=== PATIENT | male | born 1970 | race Caucasian/White ===

== ENCOUNTER 2018-03-31 22:10 | Inpatient (IN) | payer BC ==
[2018-03-31 22:30] LABS: Bilirubin Large (Negative); Blood, Urine Negative (Negative); Clarity CLEAR (Clear); Glucose, Urine (Dipstick) Negative (Negative); Leukocyte Small (Negative); Nitrite Positive (Negative); Protein, Urine (Dipstick) Negative (Neg-Trace); Specific Gravity, Urine 1.028 (1.002-1.036); pH, Urine 5.5 (5.0-9.0)
[2018-03-31 22:31] LABS: Bacteria/HPF None Seen HPF (None Seen); Hyaline Casts/LPF 0-3 HYALINE CAST LPF (0-3 Hyaline); Pathc Cast-AUWi Flag 0.29 (0-2.49); Squamous Epithelial None Seen HPF (0-3); WBC/HPF None Seen HPF (0-3)
[2018-03-31 23:08] LABS: #Eosinphils 0.1 thou/uL (0.0-0.7); #Lymphocytes 1.1 thou/uL (1.20-3.40); #Monocytes 0.5 thou/uL (0.11-0.59); #Neutrophils 5.6 thou/uL (1.40-6.50); %Basophils 0.4 % (0.0-1.0); %Eosinophils 0.7 % (0.0-10.0); %Lymphocytes 15.4 % (21.0-51.0); %Monocytes 6.4 % (0.0-10.0); %Neutrophils 77.1 % (42.0-75.0); Hemoglobin 15.4 g/dL (14.0-18.0); Mean Corpuscular HGB CONC 33.8 g/dL (32.0-36.0); Mean Corpuscular Hemoglobin 29.2 pg (27.0-31.0); Mean Corpuscular Volume 86.4 fL (78.0-98.0); Mean Platelet Volume 7.6 fL (7.4-10.4); Platelet Count 222 thou/uL (130-400); RBC Distribution Width 13.4 % (11.5-14.5); Red Blood Cell (RBC) Count 5.26 mill/uL (4.70-6.10); White Blood Cell (WBC) Count 7.3 thou/uL (4.8-10.8)
[2018-03-31 23:14] LABS: INR-International Normal Ratio 1.1; Prothrombin Time 14.2 SEC (12.0-14.7)
[2018-03-31 23:15] LABS: PTT 30.3 SEC (22.9-36.1)
[2018-03-31 23:29] LABS: ALT (SGPT) 458 U/L (8-55); AST (SGOT) 282 U/L (5-34); Albumin 4.3 g/dL (3.5-5.0); Alkaline Phosphatase 76 U/L (40-150); Anion Gap 13 mmol/L (10-20); BUN (Urea Nitrogen) 17 mg/dL (8.9-20.6); Bilirubin, Total 8.8 mg/dL (0.2-1.2); Calc. Creatinine Clearance 0 mL/min (70-130); Calcium 9.3 mg/dL (7.8-10.44); Carbon Dioxide 22 mmol/L (22-29); Chloride 106 mmol/L (98-107); Estimated GFR-MDRD 71; Globulin 3.1 g/dL (2.4-3.5); Glucose 98 mg/dL (70-105); Lipase 31 U/L (8-78); Potassium 3.9 mmol/L (3.5-5.1); Protein, Total 7.4 g/dL (6.0-8.3); Sodium 137 mmol/L (136-145)
--- NOTE | 2018-03-31 23:31 | ULT ---
RIGHT UPPER QUADRANT ULTRASOUND: History: Cholecystitis, Right upper quadrant pain. Jaundice. FINDINGS: The gallbladder is markedly distended measuring 13.7 cm in length. There is echogenic sludge in the g allbladder and multiple gallstones. The gallbladder wall is thickened measuring 4 mm. The common bile duct and the intrahepatic bile ducts are dilated. The common bile duct measures 1 cm in diameter. A markedly positive sonographic Dempsey's sign is reported by the hand candy dipper. There is a 5.8 x 3.1 cm fluid collection adjacent to the gallbladder which may either represent a flu id containing loop of bowel. However, the possibility of an abscess or contained perforation cannot b e completely excluded. No hepatic mass is seen. The right kidney is normal. The pancreas is not visualized. No free fluid is seen in Triana's pouch. IMPRESSION: Findings are consistent with acute calculus cholecystitis. Please see above. Discussed over the telephone with ER physician, Dr. Rai Bonilla, at 11:22 p.m. POS: [facility]
[2018-03-31] MEDS ORDERED: MEROPENEM 1 GM/50 ML 1 GM in Premix Bag 1 BAG IVPB SCH (23:45)
[2018-04-01] MEDS ORDERED: Lactated Ringer's 1,000 ML IV SCH (00:45)
[2018-04-01] MEDS: Lactated Ringer's 1,000 ML IV SCH ×3 (02:07→19:45)
[2018-04-01 03:24] VITALS: BMI 24.9
[2018-04-01] MEDS: Ketorolac Tromethamine 30 MG/ML VIAL IVP SCH ×3 (06:41→12:20)
[2018-04-01] MEDS: Acetaminophen 1,000 MG in Premix Bag 1 BAG IVPB SCH ×2 (06:44→12:08)
[2018-04-01] MEDS ORDERED: MEROPENEM 1 GM/50 ML 1 GM in Premix Bag 1 BAG IVPB SCH (08:00)
--- NOTE | 2018-04-01 08:42 | HP ---
HISTORY OF PRESENT ILLNESS: Brannon Jurado is a 47-year-old male going through a divorce, works [employer] and [employer], presents with 1 year history of intermittent epigastric right upper quadrant pain, biliary symptoms. He had especially severe episode with continuous pain the last few days, pr esents to the emergency room, noted to have a white count of 7, hemoglobin 15, bilirubin 8, AST and A LT 282 and 858, lipase normal. Ultrasound of his gallbladder revealed multiple gallstones and dilate d bile ducts. ALLERGIES: PENICILLIN. TOBACCO: None. ALCOHOL: Socially. MEDICATIONS: Lisinopril 40 mg a day, BuSpar 10 mg b.i.d., omeprazole 40 mg a day. [facility] Buspirone 10 mg b.i.d., Fenofibrate 54 mg daily, omeprazole 40 mg a day, lisinopril 10 mg a day. PAST SURGICAL HISTORY: Appendectomy. PAST MEDICAL HISTORY: Hypertension, elevated cholesterol. FAMILY HISTORY: Noncontributory. REVIEW OF SYSTEMS: Ten point noncontributory. PHYSICAL EXAMINATION: VITAL SIGNS: Height 6 foot 1, 189 pounds, 24 BMI, 98 degrees, 70, 127/73. HEENT: Unremarkable. LUNGS: Clear to auscultation. CARDIAC: Regular rate and rhythm without murmur or gallop. ABDOMEN: Soft, tenderness in epigastrium, right upper quadrant with guarding. EXTREMITIES: Unremarkable. No ankle edema, no lymphadenopathy. NEURO: Cranial nerves intact. Head, eyes, ears, nose and throat normal. Neurologically intact. EXTREMITIES: Unremarkable. LYMPH: Axilla, groins, neck without lymphadenopathy. ASSESSMENT AND PLAN: 1. Cholecystitis, cholelithiasis, choledocholithiasis. 2. Hypertension. 3. Elevated triglycerides. PLAN: Consultation with Dr. Howard, Gastroenterology for an ERCP prior to laparoscopic cholecystectom y, hopefully under the same anesthesia. Risk of infection, bleeding, visceral and biliary injury rel ated to the laparoscopic cholecystectomy and risk of pancreatitis discussed. He consents.
[2018-04-01] MEDS ORDERED: Ondansetron ODT 4 MG TAB PO PRN (08:43)
[2018-04-01] MEDS ORDERED: Ondansetron ODT 8 MG TAB SL PRN (08:43)
[2018-04-01] MEDS ORDERED: Acetaminophen 1,000 MG in Premix Bag 1 BAG IVPB PRN (08:43)
[2018-04-01] MEDS ORDERED: Ondansetron HCl/PF 4 MG/2 ML Vial IVP PRN ×3 (08:43→21:36)
[2018-04-01] MEDS ORDERED: Ondansetron ODT 8 MG TAB PO PRN (08:43)
[2018-04-01] MEDS ORDERED: Lisinopril 20 MG TAB PO SCH (09:45)
[2018-04-01] MEDS ORDERED: Acetaminophen 1,000 MG in Premix Bag 1 BAG IVPB SCH (09:45)
--- NOTE | 2018-04-01 12:15 | CON ---
DATE OF CONSULTATION: 04/01/2018 REQUESTING PHYSICIAN: Dr. Tan. REASON FOR CONSULTATION: Choledocholithiasis. HISTORY OF PRESENT ILLNESS: Brannon Jurado is a very pleasant 47-year-old man. I met him a couple of years ago after he had an episode of mild uncomplicated diverticulitis. I performed colonoscopy at that time which showed only a small rectal polyp, which I removed, as well as diverticulosis. The patient was admitted to the hospital overnight with cholecystitis and choledocholithiasis. He reports over the past year intermittently he has had some epigastric and right upper quadrant pain, usually postprandial and often transient, but now over the past few days, he had a more severe protracted episode. Upon presentation to the emergency department, he was found to have elevated LFTs with a normal lipase. Ultrasound of the abdomen demonstrated distended gallbladder with multiple gallstones and a common bile duct dilated to 1 cm. His pain is currently fairly well controlled on analgesics. He is hemodynamically stable. He has no other complaints. No fever. PAST MEDICAL HISTORY: Hypertension, hyperlipidemia, diverticulosis, appendectomy. ALLERGIES: PENICILLIN. MEDICATIONS: Lisinopril, BuSpar, omeprazole 40 mg daily, buspirone, fenofibrate. FAMILY HISTORY: Noncontributory. SOCIAL HISTORY: No tobacco use. Alcohol use is social. REVIEW OF SYSTEMS: Full review of systems including constitutional, head, eyes , ears, nose, throat, GI, , cardiovascular, respiratory, musculoskeletal, and neurologic systems is negative except as noted in the HPI. PHYSICAL EXAMINATION: VITAL SIGNS: Temperature 98.3, pulse 61, blood pressure 133/67, 96% oxygen saturation on room air. GENERAL: No acute distress. HEART: Regular rate and rhythm. LUNGS: Clear to auscultation bilaterally. ABDOMEN: Bowel sounds present, soft, tender to palpation in the upper abdomen, but no guarding, rebound tenderness. EXTREMITIES: No peripheral edema. VESSELS: Radial pulses 2+ bilaterally. NEUROLOGICAL: Cranial nerves II-XII intact bilaterally. No focal deficits. SKIN: No jaundice, no rashes were palpable. EYES: No scleral icterus. Extraocular movements intact. ENT: Mucous membranes moist, no oral lesions. LYMPH: No submandibular, supraclavicular lymphadenopathy. THYROID: Nontender to palpation. LABORATORY STUDIES: WBC 7.3, hemoglobin 15.4, platelets 222. INR 1.1. Sodium 137, potassium 3.9, BUN 17, creatinine 1.11. Total bilirubin elevated at 8.8, direct bilirubin 6.8, alkaline phosphatase 76, AST 282, ALT 458. Lipase normal at 31. IMAGING STUDIES: Abdominal ultrasound from last night demonstrated markedly distended gallbladder to 13.7 cm in length with echogenic sludge and multiple gallstones. There is gallbladder wall thickening to 4 mm. Intrahepatic bile ducts are dilated and the common bile duct is dilated to 1 cm in diameter with a positive sonographic Dempsey sign. There is an indeterminate 5.8 x 3.1 cm fluid collection adjacent to the gallbladder which may represent fluid containing loop of bowel. ASSESSMENT AND PLAN: 1. Choledocholithiasis. 2. Cholecystitis. I had a long discussion with the patient and his presentation is consistent with not only cholecystitis, but also choledocholithiasis. The patient will need laparoscopic cholecystectomy and ERCP. We are working to arrange this with Dr. Tan. The plan will be to take him for ERCP first followed by laparoscopic cholecystectomy under the same anesthesia this afternoon. I discussed the procedure in detail with the patient including potential risks of the procedure such as post-ERCP pancreatitis. The patient desires to proceed. TERENCE
[2018-04-01] MEDS ORDERED: PHENYLEPHRINE-NS 100 MCG/ML 10 ML SYRINGE ONE (12:25)
[2018-04-01] MEDS ORDERED: Lidocaine 1% PF 5 ML VIAL ONE (12:25)
[2018-04-01] MEDS ORDERED: Ketorolac Tromethamine 30 MG/ML VIAL ONE (12:25)
[2018-04-01] MEDS ORDERED: Ondansetron HCl/PF 4 MG/2 ML Vial ONE ×2 (12:25→20:03)
[2018-04-01] MEDS ORDERED: PROPOFOL 200 MG/20 ML VIAL ONE (12:25)
[2018-04-01] MEDS ORDERED: Bupivacaine HCl 0.5%/Epinephrine 1:200,000/PF 30 ml Vial ONE (15:09)
[2018-04-01] MEDS ORDERED: Indomethacin 50 MG SUPP ONE (16:16)
[2018-04-01] MEDS ORDERED: Iothalamate Meglumine 60% 50 ML VIAL FS ONE ×2 (16:16→18:53)
[2018-04-01] MEDS ORDERED: Fentanyl 250 MCG/5 ML VIAL ONE (16:20)
[2018-04-01] MEDS ORDERED: Rocuronium Bromide 50 MG/5 ML VIAL ONE (19:46)
--- NOTE | 2018-04-01 20:34 | RAD ---
ERCP: 04/01/2018 HISTORY: Cholelithiasis. FINDINGS: A single image is provided, demonstrating an endoscope over the right upper quadrant. No contrast me cong is present on this examination and, thus, the biliary tree is not assessed. IMPRESSION: Limited endoscope retrograde cholangiopancreatography, as above. POS: [facility]
[2018-04-01] MEDS ORDERED: Acetaminophen 500 MG TAB PO PRN (21:19)
[2018-04-01] MEDS ORDERED: Ibuprofen 600 MG TAB PO PRN (21:19)
[2018-04-01] MEDS ORDERED: traMADol HCl 50 MG TAB PO PRN (21:19)
[2018-04-01] MEDS ORDERED: Meperidine HCl/PF 25 MG/ML VIAL SLOW IVP PRN (21:36)
[2018-04-01] MEDS ORDERED: Promethazine HCl 25 MG/ML VIAL SLOW IVP PRN (21:36)
[2018-04-01] MEDS ORDERED: Promethazine HCl 25 MG/ML VIAL IM PRN (21:36)
--- NOTE | 2018-04-01 21:54 | RAD ---
INTRAOPERATIVE CHOLANGIOGRAM 1 VIEW: 04/01/2018 HISTORY: A 47-year-old male with acute acalculous cholecystitis. FINDINGS: Contrast injection into the cystic duct demonstrates diffuse moderate dilation of the intrahepatic bi liary radicles, left and right biliary ducts, the common hepatic duct, and the common bile duct, whic h tapers inferiorly. A small amount of contrast is visualized in the duodenum, mostly outside the fi eld of view. There is also extravasated contrast material outlining an oval mass, projecting directl y inferior to the cystic duct, which may represent the gallbladder. No filling defect is identified within the biliary tree, except for a gap in the contrast material in the peripheral portion of the l eft hepatic duct, just proximal to its proximal branching. IMPRESSION: 1. Moderate dilation of the biliary tree. 2. A significant filling defect in the left hepatic duct. POS: [facility]
[2018-04-01] MEDS: Enoxaparin Sodium 40 MG/0.4 ML SYRINGE SC SCH (22:34)
--- NOTE | 2018-04-01 23:20 | OP ---
DATE OF PROCEDURE: 04/01/2018 GI ENDOSCOPY NOTE SURGEON: Filiberto Mckenna MD [employer] SURGEON: None. PROCEDURE: Endoscopic retrograde cholangiopancreatography, incomplete due to failure to cannulate th e common bile duct. INDICATION: Choledocholithiasis. MEDICATIONS: 1. See anesthesia record. 2. Indomethacin 100 mg per rectum, as procedural prophylaxis against post-ERCP pancreatitis. FINDINGS: After discussion of the risks, benefits and alternatives of the procedure, informed consen t was obtained and witnessed. Endoscopic cardiopulmonary examination was satisfactory. Timeout was performed before sedation was achieved. Sedation was achieved with general anesthesia assistance in the endoscopy unit. The patient was placed in the semiprone position on the fluoroscopy table. A Pe ntax adult side-viewing duodenoscope was advanced through the mouth beyond the esophagus and stomach and into the second portion of the duodenum. The ampulla was brought into view with the endoscope in the short position. The ampulla is small, but otherwise normal appearing. There was some spontaneo us passage of sludge from the ampulla visualized. Using a triple lumen dome tip sphincterotome and 0 .035 guidewire, we attempted to selectively cannulate the common bile duct. There appears to be some degree of ampullary stenosis as passage of the wire was difficult. We switched out the wire for the smaller wire 0.025 guidewire. Multiple attempts were made with this smaller caliber wire as well as the larger wire. Unfortunately, I was unable to cannulate the common bile duct or even cannulate th e pancreatic duct, despite attempts for almost 2 hours. I discussed the case with Dr. Tan, who wa s present during the beginning and portions of the procedure. It was decided to stop the procedure a t this point and proceed with cholecystectomy with intraoperative cholangiogram. Therefore, the work ing apparatus was completely withdrawn and the endoscope was completely withdrawn sectioning out exce ss air and fluid. The patient tolerated the procedure well. There were no immediate post-procedure complications. The patient was transported to the operating room for laparoscopic cholecystectomy. ASSESSMENT: 1. Choledocholithiasis. 2. Small ampulla. 3. Incomplete endoscopic retrograde cholangiopancreatography secondary to failure to cannulate the c ommon bile duct. RECOMMENDATIONS: 1. Proceed with cholecystectomy and intraoperative cholangiogram. 2. If the intraoperative cholangiogram is positive, then we will arrange for repeat attempt at ERCP tomorrow. 3. Monitor for potential complications including pancreatitis.
[2018-04-02] MEDS: Lactated Ringer's 1,000 ML IV SCH ×3 (01:41→16:30)
--- NOTE | 2018-04-02 01:57 | OP ---
DATE OF PROCEDURE: 04/01/2018 PREOPERATIVE DIAGNOSES: Acute cholecystitis, cholelithiasis, choledocholithiasis, unsuccessful endos copic retrograde cholangiopancreatography. SURGEON: Dr. Mckenna. POSTOPERATIVE DIAGNOSES: Acute cholecystitis, chronic cholecystitis, intrahepatic gallbladder. Chol angiograms revealed dilated bile duct, delayed emptying of the common bile duct, but no filling defec ts on final fluoroscopic images. PROCEDURES: Laparoscopic video cholecystectomy, very difficult due to intrahepatic gallbladder and m ultiple small stones. Endoloops for the cystic duct stump, as it was too broad to accommodate clips even a 10-mm clip. ESTIMATED BLOOD LOSS: 150 mL, Tabitha used. PROCEDURE IN DETAIL: Patient was taken to the operating room, where under general anesthesia after u nsuccessful ERCP by Dr. Mckenna. The abdomen was clipped of hair, prepared with ChloraPrep, draped in r outine fashion. Local anesthetic 0.5% Marcaine with epinephrine infiltrated skin and subcutaneous ti ssue about each port site. Infraumbilical incision made. Pneumoperitoneum to 15 mm obtained with Ve ress needle, replacing it with a 5-port laparoscope inserted. Right subxiphoid incision made and 11- port placed. Right subcostal incision made, mid clavicular anterior axillary lines, and 5 ports plac ed. Liver appeared to be normal. Gallbladder was acutely inflamed, thickened wall, and intrahepatic gallbladder noted. The gallbladder was decompressed to enable grasping the thick wall. Fundus of t he gallbladder grasped at the cephalad and infundibulum dissected free. Cystic artery and duct disse cted free. Critical view obtained. Cystic artery double-clipped proximally. The cystic duct singly clipped on the gallbladder side. An opening made in the cystic duct, cholangiocath inserted, and ch olangiogram was obtained using fluoroscopy revealing the dilated bile duct without emptying initially , but after further pressure, it emptied without filling defects and tapered nicely without filling d efects. Emptying the duodenum was noted. Good hemostasis noted. Cholangiocath removed. Cystic kat t stump. A 5-mm clip would not occlude, 10-mm clip would not occlude, two Endoloops were placed, and gallbladder carefully dissected from the liver bed was very difficult due to intrahepatic gallbladde r. Gallbladder and contents removed, placed in Endobag and removed. Subxiphoid fascia approximated with [id number] suture of 0 Vicryl GraNee needle. Good hemostasis noted. Tabitha placed in live r bed. A #19 gold RITIKA drain placed in the liver bed and brought out through a right subcostal trocar site, secured with 3-0 nylon suture. An irrigant, pneumoperitoneum evacuated. All instruments remov ed and all skin incisions approximated with subdermal 4-0 Monocryl and DermaGlue applied.
[2018-04-02] MEDS: Ketorolac Tromethamine 30 MG/ML VIAL IVP PRN ×2 (02:03→21:16)
[2018-04-02 05:25] LABS: #Lymphocytes 0.4 thou/uL (1.20-3.40); #Monocytes 0.4 thou/uL (0.11-0.59); %Basophils 0.1 % (0.0-1.0); %Eosinophils 0.1 % (0.0-10.0); %Lymphocytes 5.6 % (21.0-51.0); %Monocytes 5.6 % (0.0-10.0); %Neutrophils 88.7 % (42.0-75.0); Hemoglobin 12.5 g/dL (14.0-18.0); Mean Corpuscular HGB CONC 32.5 g/dL (32.0-36.0); Mean Corpuscular Hemoglobin 28.5 pg (27.0-31.0); Mean Corpuscular Volume 87.7 fL (78.0-98.0); Mean Platelet Volume 8.5 fL (7.4-10.4); Platelet Count 175 thou/uL (130-400); RBC Distribution Width 13.1 % (11.5-14.5); Red Blood Cell (RBC) Count 4.41 mill/uL (4.70-6.10); White Blood Cell (WBC) Count 7.9 thou/uL (4.8-10.8)
[2018-04-02 05:49] LABS: ALT (SGPT) 327 U/L (8-55); AST (SGOT) 204 U/L (5-34); Albumin 3.3 g/dL (3.5-5.0); Alkaline Phosphatase 77 U/L (40-150); Anion Gap 13 mmol/L (10-20); BUN (Urea Nitrogen) 16 mg/dL (8.9-20.6); Bilirubin, Total 9.4 mg/dL (0.2-1.2); Calc. Creatinine Clearance 130 mL/min (70-130); Calcium 8.4 mg/dL (7.8-10.44); Carbon Dioxide 22 mmol/L (22-29); Chloride 105 mmol/L (98-107); Estimated GFR-MDRD Greater than 90; Globulin 2.1 g/dL (2.4-3.5); Glucose 138 mg/dL (70-105); Potassium 3.9 mmol/L (3.5-5.1); Protein, Total 5.4 g/dL (6.0-8.3); Sodium 136 mmol/L (136-145)
[2018-04-02 06:02] LABS: Lipase 2182 U/L (8-78)
[2018-04-02] MEDS: Ketorolac Tromethamine 30 MG/ML VIAL IVP SCH (09:30)
[2018-04-02] MEDS: Lisinopril 20 MG TAB PO SCH (09:30)
--- NOTE | 2018-04-02 12:56 | PRG ---
DATE OF SERVICE: 04/02/2018 Brannon Jurado is doing well today. He is having some upper abdominal pain spanning from his right upper quadrant to his left upper quadrant. He has not had any nausea or vomiting. PHYSICAL EXAMINATION: VITAL SIGNS: Temperature 98.5 degrees, 75, 127/69. LABORATORY: White count 7, hemoglobin 12, sodium 136, potassium 3.9, bilirubin 9.4, AST 204, ALT 327 , lipase 2182. ASSESSMENT AND PLAN: Mild pancreatitis post-laparoscopic cholecystectomy, cholangiograms and failed attempt at ERCP. Cholangiogram was initially thought were negative, but further review reveals proba ble filling defect in the left hepatic duct. I have discussed with Dr. Wilfrid Stanley. Probably would tyrone sofy reattempts at ERCP for another 24 hours. We will check his labs tomorrow. Continue intravenous antibiotics, increase mobility, allow sips and chips.
[2018-04-02 19:04] LABS: Bilirubin Large (Negative); Blood, Urine Negative (Negative); Clarity CLOUDY (Clear); Glucose, Urine (Dipstick) Negative (Negative); Leukocyte Small (Negative); Nitrite Positive (Negative); Protein, Urine (Dipstick) Negative (Neg-Trace); Specific Gravity, Urine 1.024 (1.002-1.036); Urobilinogen 0.2 mg/dL (0.2-1.0); pH, Urine 5.5 (5.0-9.0)
[2018-04-02 19:06] LABS: Bacteria/HPF None Seen HPF (None Seen); Hyaline Casts/LPF 7-10 HYALINE CAST LPF (0-3 Hyaline); Pathc Cast-AUWi Flag 2.47 (0-2.49); Squamous Epithelial 0-3 HPF (0-3); WBC/HPF 0-3 HPF (0-3)
[2018-04-02 19:18] LABS: RBC/HPF None Seen HPF (0-3); Yeast-All Forms None Seen HPF (None Seen)
[2018-04-02] MEDS: Enoxaparin Sodium 40 MG/0.4 ML SYRINGE SC SCH (21:05)
[2018-04-03] MEDS: Lactated Ringer's 1,000 ML IV SCH ×3 (01:26→14:43)
[2018-04-03] MEDS: traMADol HCl 50 MG TAB PO PRN (03:47)
[2018-04-03 05:51] LABS: #Lymphocytes 0.6 thou/uL (1.20-3.40); #Monocytes 0.3 thou/uL (0.11-0.59); #Neutrophils 5.2 thou/uL (1.40-6.50); %Eosinophils 0.3 % (0.0-10.0); %Monocytes 5.4 % (0.0-10.0); %Neutrophils 84.3 % (42.0-75.0); Hemoglobin 10.6 g/dL (14.0-18.0); Mean Corpuscular HGB CONC 33.3 g/dL (32.0-36.0); Mean Corpuscular Volume 87.2 fL (78.0-98.0); Mean Platelet Volume 7.8 fL (7.4-10.4); Platelet Count 151 thou/uL (130-400); RBC Distribution Width 13.3 % (11.5-14.5); Red Blood Cell (RBC) Count 3.64 mill/uL (4.70-6.10); White Blood Cell (WBC) Count 6.2 thou/uL (4.8-10.8)
[2018-04-03 06:05] LABS: ALT (SGPT) 223 U/L (8-55); AST (SGOT) 128 U/L (5-34); Albumin 3.1 g/dL (3.5-5.0); Alkaline Phosphatase 83 U/L (40-150); Anion Gap 10 mmol/L (10-20); BUN (Urea Nitrogen) 16 mg/dL (8.9-20.6); Bilirubin, Total 4.7 mg/dL (0.2-1.2); Calc. Creatinine Clearance 148 mL/min (70-130); Calcium 8.4 mg/dL (7.8-10.44); Carbon Dioxide 26 mmol/L (22-29); Chloride 104 mmol/L (98-107); Estimated GFR-MDRD Greater than 90; Globulin 2.3 g/dL (2.4-3.5); Glucose 86 mg/dL (70-105); Lipase 876 U/L (8-78); Potassium 3.7 mmol/L (3.5-5.1); Protein, Total 5.4 g/dL (6.0-8.3); Sodium 136 mmol/L (136-145)
--- NOTE | 2018-04-03 06:29 | PRG ---
DATE OF SERVICE: 04/02/2018 REASON FOR CONSULTATION: Choledocholithiasis. SUBJECTIVE: The patient underwent ERCP yesterday and was unsuccessful to achieve successful cannulat ion of the ampulla. He was subsequently taken for laparoscopic cholecystectomy afterwards with intra operative cholangiogram performed that was initially negative for retained stone, but upon further re view may be harboring a left hepatic stone. Today, the patient states that he has been having increa sed dysuria with pain with urination since this morning. He denies any blood in his urine, but notes that it has been orange in coloration since prior to admission. He also endorses increased right up per quadrant and midepigastric abdominal pain that he is relatively unchanged from previous, although maybe a little worse over the midepigastric region. Currently, denies any nausea, vomiting, fevers, chills, dysphagia, odynophagia, diarrhea or constipation. OBJECTIVE: VITAL SIGNS: Temperature 98.2, pulse 76, blood pressure 133/70, respiratory rate 16, satting 96% on room air. GENERAL: The patient is lying in bed, in no acute distress. Alert and oriented x4. CARDIOVASCULAR: Regular rate and rhythm. PULMONARY: Clear to auscultation bilaterally. ABDOMEN: Normoactive bowel sounds, soft, nondistended. Tenderness to palpation in the right upper q uadrant, midepigastric, and periumbilical regions. EXTREMITIES: No cyanosis, clubbing or edema. LABORATORY DATA: CBC with a white blood cell count of 7.9, hemoglobin 12.5, hematocrit 38.6, platele ts 175. Chemistry with a sodium of 136, potassium 3.9, chloride 105, carbon dioxide 22, BUN 16, crea tinine 0.84, glucose 138, AST 204, ALT 327, alkaline phosphatase 77, total bilirubin 9.4, lipase 2182 . IMAGING DATA: No current GI imaging is available for review. ASSESSMENT AND PLAN: The patient is a 47-year-old gentleman with past medical history of hypertensio n, hyperlipidemia, diverticulosis, presenting with complaints of abdominal pain and probable choledoc holithiasis. Choledocholithiasis: The patient initially presented with intermittent epigastric and right upper qu adrant abdominal pain that was usually postprandial, but had worsened the past few days prior to admi ssion. On admission, he was noted to have significantly elevated LFTs as well as a normal lipase, bu t imaging showed dilation of the common bile duct to approximately 1 cm concerning for choledocholith iasis. He subsequently underwent ERCP on 04/01/2018 with an unsuccessful attempt to cannulate the am melanie for stone extraction. He subsequently went for laparoscopic cholecystectomy on 04/01/2018 with intraoperative cholangiogram initially not showing any filling defects, but upon further review may be harboring a retained stone within the left hepatic duct. Upon review of his labs today, his AST a nd ALT are currently down trending, although his total bilirubin is up trending which may be a delaye d effect from the inflammation within the liver and not necessarily indicative of a continued obstruc tive process. However, he does have an elevated lipase since ERCP concerning for post-ERCP pancreati tis. RECOMMENDATIONS: 1. We would continue to trend LFTs daily. If his LFTs are increased in the morning, we will conside r repeat ERCP for a repeat attempt at possible cannulation of the ampulla and stone extraction. Othe rwise, if his LFTs are down trending, we would continue to monitor. 2. We would continue IV fluids as you are doing for acute post-ERCP pancreatitis. 3. Pain control per primary team. 4. We would consider urinalysis for dysuria that the patient is complaining of today, although it is most likely due to post-instrumentation with Tesfaye catheter during the ERCP yesterday. We will continue to follow. Please call with any questions.
[2018-04-03] MEDS: Lisinopril 20 MG TAB PO SCH (09:40)
[2018-04-03] MEDS: Ketorolac Tromethamine 30 MG/ML VIAL IVP SCH (09:41)
[2018-04-03] MEDS ORDERED: Fentanyl 100 MCG/2 ML VIAL ONE (10:18)
[2018-04-03] MEDS ORDERED: Midazolam HCl 2 mg/2 ml Vial ONE (10:52)
[2018-04-03] MEDS ORDERED: Iothalamate Meglumine 60% 50 ML VIAL FS ONE (11:05)
[2018-04-03] MEDS ORDERED: Indomethacin 50 MG SUPP ONE (11:05)
[2018-04-03] MEDS ORDERED: Ondansetron HCl/PF 4 MG/2 ML Vial IVP PRN (11:39)
[2018-04-03] MEDS ORDERED: Promethazine HCl 25 MG/ML VIAL SLOW IVP PRN (11:39)
[2018-04-03] MEDS ORDERED: Meperidine HCl/PF 25 MG/ML VIAL SLOW IVP PRN (11:39)
[2018-04-03] MEDS ORDERED: Promethazine HCl 25 MG/ML VIAL IM PRN (11:39)
--- NOTE | 2018-04-03 12:49 | OP ---
DATE OF PROCEDURE: 04/03/2018 PREOPERATIVE DIAGNOSIS: Obstructive jaundice. DESCRIPTION OF PROCEDURE: After informed consent was obtained, the patient placed in left lateral de cubitus position. Anesthesia was administered per the Anesthesia Department. Side-viewing endoscope was inserted into esophagus under direct visualization with ease and passed to the second portion of the duodenum with ease. No mucosal abnormalities were noted. The ampulla was normal except for see med to be slightly scarred at the distal tip of the ampulla. Tapered-tip papillotome could not be in serted even with guidewire assistance and a regular cannula was tried. This was successfully cannula gucci and a wire was passed. Exchange was made for the papillotome. A sphincterotomy was performed an d a duct was swept multiple times with a 9 mm balloon revealing multiple small white colored stones. ASSESSMENT: 1. Choledocholithiasis. 2. Status post sphincterotomy and stone extraction. RECOMMENDATIONS: Recheck LFTs.
[2018-04-03] MEDS ORDERED: ePHEDrine/0.9% NaCl/PF SYRINGE 50 mg/10 ml ONE (13:38)
[2018-04-03] MEDS ORDERED: PROPOFOL 200 MG/20 ML VIAL ONE (13:38)
[2018-04-03] MEDS ORDERED: Ondansetron HCl/PF 4 MG/2 ML Vial ONE (13:38)
[2018-04-03] MEDS ORDERED: Lidocaine 1% PF 5 ML VIAL ONE (13:38)
[2018-04-03] MEDS ORDERED: PHENYLEPHRINE-NS 100 MCG/ML 10 ML SYRINGE ONE (13:38)
[2018-04-03] MEDS ORDERED: Dexamethasone 20 MG/5 ML VIAL ONE (13:38)
[2018-04-03] MEDS ORDERED: Glycopyrrolate 0.2 MG/ML 5 ML SYRINGE ONE (13:38)
--- NOTE | 2018-04-03 18:41 | HP ---
DATE OF SERVICE: 04/03/2018 SUBJECTIVE: Mr. Jurado is doing well today. He is still having some abdominal pain, but better than y day. OBJECTIVE: VITAL SIGNS: 98 degrees, 81, 127/73, and respiratory rate 12. LUNGS: Clear to auscultation. CARDIAC: Regular rate and rhythm without murmur or gallop. ABDOMEN: Soft, no guarding. Drainage from his drain is bloody serous. LABORATORY DATA: His laboratories this morning, white count is 6.2, hemoglobin 10.6. His sodium was 136, potassium 3.7, BUN 16, creatinine 0.74. His bilirubin has fallen from 9.4-4.7. Transaminases 204 AST to 128, 327 ALT to 223, alkaline phosphatase is normal at 83, lipase has fallen from 2182 at ER stay to 876 today. ASSESSMENT AND PLAN: I have discussed with Gastroenterology, Dr. Stanley will plan ERCP attempt again t patricia. If this is unsuccessful, then we will send him to Dr. Cruz in [place]. The patient agrees with this plan. He understands risks and benefits of the ERCP and questions were answered. The pat ient's urinalysis obtained yesterday, he has positive nitrite. He did have an in and out catheteriza tion, but he is on Levaquin and no further treatment is indicated. He is on Levaquin for intra-abdom inal problems. COMMENT: The patient post ERCP can advance diet as tolerated. GI, pending procedure.
[2018-04-04] MEDS: Lactated Ringer's 1,000 ML IV SCH ×2 (00:23→07:43)
[2018-04-04 05:36] LABS: #Monocytes 0.5 thou/uL (0.11-0.59); #Neutrophils 5.9 thou/uL (1.40-6.50); %Basophils 0.2 % (0.0-1.0); %Eosinophils 0.2 % (0.0-10.0); %Lymphocytes 13.7 % (21.0-51.0); %Monocytes 6.1 % (0.0-10.0); %Neutrophils 79.7 % (42.0-75.0); Hemoglobin 9.9 g/dL (14.0-18.0); Mean Corpuscular HGB CONC 33.6 g/dL (32.0-36.0); Mean Corpuscular Hemoglobin 29.2 pg (27.0-31.0); Mean Corpuscular Volume 86.8 fL (78.0-98.0); Mean Platelet Volume 8.1 fL (7.4-10.4); Platelet Count 148 thou/uL (130-400); RBC Distribution Width 13.3 % (11.5-14.5); White Blood Cell (WBC) Count 7.4 thou/uL (4.8-10.8)
[2018-04-04 05:58] LABS: ALT (SGPT) 195 U/L (8-55); AST (SGOT) 86 U/L (5-34); Albumin 3.2 g/dL (3.5-5.0); Alkaline Phosphatase 90 U/L (40-150); Anion Gap 11 mmol/L (10-20); BUN (Urea Nitrogen) 13 mg/dL (8.9-20.6); Bilirubin, Total 2.9 mg/dL (0.2-1.2); Calc. Creatinine Clearance 140 mL/min (70-130); Calcium 8.8 mg/dL (7.8-10.44); Carbon Dioxide 26 mmol/L (22-29); Chloride 102 mmol/L (98-107); Estimated GFR-MDRD Greater than 90; Globulin 2.6 g/dL (2.4-3.5); Glucose 94 mg/dL (70-105); Lipase 76 U/L (8-78); Protein, Total 5.8 g/dL (6.0-8.3); Sodium 135 mmol/L (136-145)
[2018-04-04] MEDS: traMADol HCl 50 MG TAB PO PRN (07:56)
[2018-04-04] MEDS: Lisinopril 20 MG TAB PO SCH (07:58)
[2018-04-04] MEDS: Ketorolac Tromethamine 30 MG/ML VIAL IVP SCH (07:58)
--- NOTE | 2018-04-04 10:44 | PRG ---
DATE OF SERVICE: 04/04/2018 SUBJECTIVE: Mr. Brannon Jurado is doing well today. He is tolerating his diet. He wants to go home. He states he felt tremendously better after his ERCP, sphincterotomy, stone extraction. OBJECTIVE: VITAL SIGNS: 98.1 degrees, 80, 127/73. LUNGS: Clear to auscultation. CARDIAC: Regular rate and rhythm without murmur or gallop. ABDOMEN: Soft, nontender. RITIKA drainage output has diminished and it is more serous. LABORATORY DATA: This morning, his white count is 7, hemoglobin 9.9. His bilirubin has fallen to 2. 9 from 9. ASSESSMENT AND PLAN: Doing well after laparoscopic cholecystectomy for acute cholecystitis and a sec ond attempt of endoscopic retrograde cholangiopancreatography, sphincterotomy, stone extraction was s uccessful. He is being discharged home with Levaquin for 5 days, Ultram p.r.n. pain. Return to work Sunday. Follow up in my office in 2 weeks. Diet and activity unrestricted. He can shower and bath e.
[2018-04-04 12:15] VITALS: BP 120/74; TEMP 98.8
--- NOTE | 2018-04-04 16:38 | DIS ---
DATE OF ADMISSION: 03/31/2018 DATE OF DISCHARGE: 04/04/2018 DISCHARGE DIAGNOSES: Acute cholecystitis, cholelithiasis, choledocholithiasis, intrahepatic gallblad jameel difficult cholecystectomy. PATHOLOGY: Acute cholecystitis with ulceration and necrosis. HISTORY: A 47-year-old male patient with 1 year history of biliary symptoms, treated with proton-pum p inhibitors, presents to the hospital, admitted from the emergency room with acute cholecystitis and a dilated bile duct. On admission, his bilirubin was 8.8 and on the next day was 9.4. The patient was given intravenous antibiotics and fluids and ERCP attempted, but unsuccessful and this was follow ed under the same anesthetic by laparoscopic cholecystectomy. Liver function tests were observed. C holangiogram and intraoperative revealed a filling defect in the left hepatic duct. Although, liver function test improved. It was felt he needed a reattempt ERCP, which was performed 48 hours later p rior to discharge. After this, he felt much better. He is being discharged home with oral Levaquin for 5 days, Ultram p.r.n. pain, Tylenol, Motrin [id number]. Diet and activity as tolerated, no restrictions. Follow up in my office in 2 weeks.
== END 2018-04-04 12:25 | disposition home or self-care (01) | DRG 417 ==
LOC: ERS 22:10 → OBSVTOIN 23:59 → SURG B 23:59
PROVIDERS: ADMIT Specialist; ATTEND Specialist
PROC: 0FT44ZZ Resection of Gallbladder, Percutaneous Endoscopic Approach (ICD-10-PCS; principal; 2018-04-01)
PROC: 0FJB8ZZ Inspection of Hepatobiliary Duct, Via Natural or Artificial Opening Endoscopic (ICD-10-PCS; 2018-04-01)
PROC: BF101ZZ Fluoroscopy of Bile Ducts using Low Osmolar Contrast (ICD-10-PCS; 2018-04-01)
PROC: 0FC98ZZ Extirpation of Matter from Common Bile Duct, Via Natural or Artificial Opening Endoscopic (ICD-10-PCS; 2018-04-03)
PROC: BF101ZZ Fluoroscopy of Bile Ducts using Low Osmolar Contrast (ICD-10-PCS; 2018-04-03)
DX: K80.63 Calculus of gallbladder and bile duct with acute cholecystitis with obstruction (principal); K85.90 Acute pancreatitis without necrosis or infection, unspecified; K82.8 Other specified diseases of gallbladder; I10 Essential (primary) hypertension; E78.1 Pure hyperglyceridemia; E78.5 Hyperlipidemia, unspecified; Z87.19 Personal history of other diseases of the digestive system; R94.5 Abnormal results of liver function studies
CPT/HCPCS: 36415; 47532; 74330; 76000; 76705; 80053; 81003; 81015; 82248; 83690; 85025; 85610; 85730; 88304; 93005; 96365; C1769; J0131; J0670; J1100; J1610; J1650; J1885; J1956; J2001; J2185; J2250; J2270; J2405; J2704; J3010; Q9961